=== PATIENT | male | born 1940 | race Caucasian/White ===

== ENCOUNTER → 2023-08-06 | Emergency (ER) | payer OTHER ==
[~2023-08-06] MED LIST: ASPIRIN 81 MG CHEWABLE TABLET ONE
--- OUTSIDE RECORDS SUMMARY | 2023-08-06 17:59 | XMS REPORT | Continuity of Care Document ---
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 Whole Name Role Phone GILBERTO ROY Attending Clinician Unavailable EDSON YODER Attending Clinician Unavail able Doctor Unassigned, [place] Attending Clinician U verónica Yoder MD, Edson Ceja Attending Clinician Jordi Soler MD Attending Clinician [phone] Payers Payer Name Policy Type Policy Number Effective Date Expirati on Date Source [id number] 2020 00:[facility]:00 [facility] MEDIC[facility] ERS [id number] 2016 00:00:00 2020 00:00:00 Problems Condition Name Condition Details Condition Category Status Onset Date Resolution Date Last Treatment Date Treating Clinician Comments Source Melanoma in situ of external ear, 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 Added automatic ally from request for surgery [id number] [facility] Allergies, Adverse Reactions, Alerts Allergy Name Allergy Type Status Severity Reaction(s) Onset Date Inactive Date Treating Clinician Comments Source NO KNOWN ALLERGIE S Drug Class Active [facility] Social History Social Habit Start Date Stop Date Quantity Comments Source Exposure to SARS-CoV-2 (event) Not sure [facility] Alcohol intake 2019-07-26 00:00:00 2019-07-26 00:00:00 Current non-drinker of alcohol (finding) [facility] Tobacco use and exposure 2019-07-26 00:00:00 2019-07-26 00:00:00 Never used [facility] Sex Assigned At 1940 00:00:00 1940 00:00:00 [facility] Smoking Status Start Date Stop Date Source Former smoker 2019-07-26 00:00:00 2019-07-26 00:00:00 [facility] Medications Ordered Medication Name Filled Medication Name Start Date Stop Date Current Medication? Ordering Clinician Indication Dosage Frequency Signature (SIG) Comments Components Source simvastatin 20 mg tablet 2018-07 17:02: 03 Yes 20mg Take 20 mg by mouth at bedtime. [facility] carvedilol 6.25 mg tablet 2018-07 17:02: 03 Yes 6.25mg Take 6.25 mg by mouth 2 (two) times daily with meals. [facility] aspirin 81 mg chewable tablet 2018-07 17:02: 03 Yes 81mg Take 81 mg by mouth daily. [facility] Amlodipine- Olmesartan (SAMIR) 10-40 mg Tab 2018-07 17:02: 03 Yes Take by mouth daily. [facility] simvastatin 20 mg tablet 2018-07 17:02: 03 Yes 20mg Take 20 mg by mouth at bedtime. [facility] carvedilol 6.25 mg tablet 2018-07 17:02: 03 Yes 6.25mg Take 6.25 mg by mouth 2 (two) times daily with meals. [facility] aspirin 81 mg chewable tablet 2018-07 17:02: 03 Yes 81mg Take 81 mg by mouth daily. [facility] Amlodipine- Olmesartan (SAMIR) 10-40 mg Tab 2018-07 17:02: 03 Yes Take by mouth daily. [facility] simvastatin 20 mg tablet 2018-07 17:02: 03 Yes 20mg Take 20 mg by mouth at bedtime. [facility] carvedilol 6.25 mg tablet 2018-07 17:02: 03 Yes 6.25mg Take 6.25 mg by mouth 2 (two) times daily with meals. [facility] aspirin 81 mg chewable tablet 2018-07 17:02: 03 Yes 81mg Take 81 mg by mouth daily. [facility] Amlodipine- Olmesartan (SAMIR) 10-40 mg Tab 2018-07 17:02: 03 Yes Take by mouth daily. [facility] simvastatin 20 mg tablet 2018-07 17:02: 03 Yes 20mg Take 20 mg by mouth at bedtime. [facility] carvedilol 6.25 mg tablet 2018-07 17:02: 03 Yes 6.25mg Take 6.25 mg by mouth 2 (two) times daily with meals. [facility] aspirin 81 mg chewable tablet 2018-07 17:02: 03 Yes 81mg Take 81 mg by mouth daily. [facility] Amlodipine- Olmesartan (SAMIR) 10-40 mg Tab 2018-07 17:02: 03 Yes Take by mouth daily. [facility] simvastatin 20 mg tablet 2018-07 17:02: 03 Yes 20mg Take 20 mg by mouth at bedtime. [facility] carvedilol 6.25 mg tablet 2018-07 17:02: 03 Yes 6.25mg Take 6.25 mg by mouth 2 (two) times daily with meals. [facility] aspirin 81 mg chewable tablet 2018-07 17:02: 03 Yes 81mg Take 81 mg by mouth daily. [facility] Amlodipine- Olmesartan (SAMIR) 10-40 mg Tab 2018-07 17:02: 03 Yes Take by mouth daily. [facility] simvastatin 20 mg tablet 2018-07 17:02: 03 Yes 20mg Take 20 mg by mouth at bedtime. [facility] carvedilol 6.25 mg tablet 2018-07 17:02: 03 Yes 6.25mg Take 6.25 mg by mouth 2 (two) times daily with meals. [facility] aspirin 81 mg chewable tablet 2018-07 17:02: 03 Yes 81mg Take 81 mg by mouth daily. [facility] Amlodipine- Olmesartan (SAMIR) 10-40 mg Tab 2018-07 17:02: 03 Yes Take by mouth daily. [facility] simvastatin 20 mg tablet 2018-07 17:02: 03 Yes 20mg Take 20 mg by mouth at bedtime. [facility] carvedilol 6.25 mg tablet 2018-07 17:02: 03 Yes 6.25mg Take 6.25 mg by mouth 2 (two) times daily with meals. [facility] aspirin 81 mg chewable tablet 2018-07 17:02: 03 Yes 81mg Take 81 mg by mouth daily. [facility] Amlodipine- Olmesartan (SAMIR) 10-40 mg Tab 2018-07 17:02: 03 Yes Take by mouth daily. [facility] methylPREDN ISolone (MEDROL, JOE,) 4 mg tablets 2018-07 00:00: 00 Yes [id number] Take by mouth SEE-INSTRU CTIONS. follow package directions [facility] methylPREDN ISolone (MEDROL, JOE,) 4 mg tablets 2018-07 00:00: 00 Yes [id number] Take by mouth SEE-INSTRU CTIONS. follow package directions [facility] methylPREDN ISolone (MEDROL, JOE,) 4 mg tablets 2018-07 00:00: 00 Yes [id number] Take by mouth SEE-INSTRU CTIONS. follow package directions [facility] methylPREDN ISolone (MEDROL, JOE,) 4 mg tablets 2018-07 00:00: 00 Yes [id number] Take by mouth SEE-INSTRU CTIONS. follow package directions [facility] methylPREDN ISolone (MEDROL, JOE,) 4 mg tablets 2018-07 00:00: 00 Yes [id number] Take by mouth SEE-INSTRU CTIONS. follow package directions [facility] methylPREDN ISolone (MEDROL, JOE,) 4 mg tablets 2018-07 00:00: 00 Yes [id number] Take by mouth SEE-INSTRU CTIONS. follow package directions [facility] methylPREDN ISolone (MEDROL, JOE,) 4 mg tablets 2018-07 00:00: 00 Yes [id number] Take by mouth SEE-INSTRU CTIONS. follow package directions [facility]/gram ointment 2018-07 00:00: 00 Yes [id number] Apply to affected area(s) 3 (three) times daily. [facility] traMADol 50 mg tablet 2018-07 00:00: 00 Yes [id number] 50mg Take 1 tablet by mouth every 6 (six) hours as needed for Pain (scale 7-10). [facility] bacitracin 500 unit/gram ointment 2018-07 00:00: 00 Yes [id number] Apply to affected area(s) 3 (three) times daily. [facility] traMADol 50 mg tablet 2018-07 00:00: 00 Yes [id number] 50mg Take 1 tablet by mouth every 6 (six) hours as needed for Pain (scale 7-10). [facility] bacitracin 500 unit/gram ointment 2018-07 00:00: 00 Yes [id number] Apply to affected area(s) 3 (three) times daily. [facility] traMADol 50 mg tablet 2018-07 00:00: 00 Yes [id number] 50mg Take 1 tablet by mouth every 6 (six) hours as needed for Pain (scale 7-10). [facility] bacitracin 500 unit/gram ointment 2018-07 00:00: 00 Yes [id number] Apply to affected area(s) 3 (three) times daily. [facility] traMADol 50 mg tablet 2018-07 00:00: 00 Yes [id number] 50mg Take 1 tablet by mouth every 6 (six) hours as needed for Pain (scale 7-10). [facility] bacitracin 500 unit/gram ointment 2018-07 00:00: 00 Yes [id number] Apply to affected area(s) 3 (three) times daily. [facility] traMADol [facility] mg tablet 2018-07 00:00: 00 Yes [id number] 50mg Take 1 tablet by mouth every 6 (six) hours as needed for Pain (scale 7-10). [facility] bacitracin 500 unit/gram ointment 2018-07 00:00: 00 Yes [id number] Apply to affected area(s) 3 (three) times daily. [facility] traMADol 50 mg tablet 2018-07 00:00: 00 Yes [id number] 50mg Take 1 tablet by mouth every 6 (six) hours as needed for Pain (scale 7-10). [facility] bacitracin 500 unit/gram ointment 2018-07 00:00: 00 Yes [id number] Apply to affected area(s) 3 (three) times daily. [facility] traMADol 50 mg tablet 2018-07 00:00: 00 Yes [id number] 50mg Take 1 tablet by mouth every 6 (six) hours as needed for Pain (scale 7-10). [facility] Vital Signs Vital Name Observation Time Observation Value Comments S ource Systolic blood pressure 2020-01-21 13:18:00 133 mm[Hg] [facility] Diastolic blood pressure 2020-01-21 13:18:00 75 mm[Hg] [facility] Heart rate 2020-01-21 13:18:00 80 /min [facility] Body temperature 2020-01-21 13:17:00 36.83 Maria C [facility] Respiratory rate 2020-01-21 13:17:00 20 /min [facility] Body height 2020-01-21 13:17:00 167.6 cm [facility] Body weight 2020-01-21 13:17:00 93.895 kg [facility] BMI 2020-01-21 13:17:00 33.41 kg/m2 [facility] Oxygen saturation in Arterial blood by Pulse oximetry 2020-01-21 13:17:00 98 /min [facility] Procedures Procedure Date / Time Performed Performing Clinicia n Source ASSIGNMENT OF BENEFITS 2020-06-24 13:59:56 Docto r Unassigned, [place] [facility] EXTERNAL PROVIDER RECORDS 2020-04-14 05:01:00 Doctor Unassigned, [place] [facility] DISABILITY/FMLA 2019-09-17 06:01:00 Doctor Unass igned, [place] [facility] DISABILITY/FMLA 2019-09-06 06:01:00 Doctor Unass igned, [place] [facility] Encounters Start Date/Time End Date/Time Encounter Type Admission Type Attending [facility] Care Department Encounter ID Source 2020-09-29 09:10:00 2020-09-29 09:10:00 Outpatient GILBERTO CASTELLANOS [facility] [id number] [facility] 2020-09-08 09:10:00 2020-09-08 09:10:00 Outpatient GILBERTO CASTELLANOS [facility] [id number] [facility] 2020-06-24 08:15:00 2020-06-24 08:15:00 Outpatient DESON SANTA [facility] [id number] [facility] 2020-06-24 00:00:00 2020-06-24 00:00:00 Orders Only Doctor Unassigned, [place] [facility] 1..840.114 [id number] [facility] 2020-04-14 00:00:00 2020-04-14 00:00:00 Orders Only Doctor Unassigned, [place] [facility] 1..840.114 [id number] [facility] 2020-01-21 07:54:31 2020-01-21 08:17:01 Office Visit Edson Yoder [facility] 1..840.114 [id number] [id number] [facility] 2020-01-21 08:00:00 2020-01-21 08:00:00 Outpatient EDSON SANTA [facility] [id number] [facility] 2019-09-17 00:00:00 2019-09-17 00:00:00 Orders Only Doctor Unassigned, [place] [facility] [id number] [facility] 2019-09-11 00:00:00 2019-09-11 00:00:00 Telephone Ryder [facility] [id number] [facility] 2019-09-06 00:00:00 2019-09-06 00:00:00 Orders Only Doctor Unassigned, [place] [facility] [id number] [facility]
--- NOTE | 2023-08-06 18:50 | RAD REPORT ---
EXAM DESCRIPTION: Jannie Single View08/06/2023 6:45 pm CLINICAL HISTORY: CHEST PAIN COMPARISON: Chest Pa And Lat (2 Views) dated 07/07/2017; CHEST PA AND LAT 2 VIEW dated 09/23/2014 TECHNIQUE: Portable AP view of the chest. FINDINGS: The lungs are clear. No pneumothorax or effusion. The cardiomediastinal contours are unre markable. IMPRESSION: No acute cardiopulmonary process.
[2023-08-06 19:00] LABS: Absolute Lymphocytes (CBC) 0.8 K/uL (0.7-4.9); Hematocrit 44.2 % (39.6-49.0); Lymphocytes % 22.3 % (15.3-44.8); MCV 93.4 fL (80-100); MPV 8.8 fL (7.6-11.3); Platelets 152 thou/uL (152-406); Protime INR 1.2; RBC Red Blood Cell Count 4.74 M/uL (4.33-5.43)
[2023-08-06 19:12] LABS: Albumin 3.5 g/dL (3.4-5.0); Bilirubin Direct 0.2 mg/dL (0-0.2); Bilirubin Indirect, Calculated 0.4 mg/dL (0.2-0.8); Bilirubin Total 0.6 mg/dL (0.2-1.0); Magnesium 2.2 mg/dL (1.6-2.4); Potassium 3.4 mEq/L (3.5-5.1); Protein, Total 6.9 g/dL (6.4-8.2); Troponin High Sensitivity 6.5 pg/mL (<58.9)
--- NOTE | 2023-08-06 21:31 | ER ---
Nurse's Notes [facility] Name: Antwon Ball Sr Age: 83 yrs Sex: Male : 1940 Arrival Date: 08/06/2023 Time: 17:56 Bed 20 Private MD: Diagnosis: Chest pain, unspecified Presentation: 08/06 18:00 Chief complaint: Patient states: he felt like he needed to burp but couldn't, he nj1 finally did and felt better after. No chest pain at this time. 18:00 Coronavirus screen: Vaccine status: Patient reports receiving the 2nd dose of the covid nj1 vaccine. Ebola Screen: Patient denies travel to an Ebola-affected area in the 21 days before illness onset. Initial Sepsis Screen: Does the patient meet any 2 criteria? HR > 90 bpm. No. Patient's initial sepsis screen is negative. Does the patient have a suspected source of infection? No. Patient's initial sepsis screen is negative. Risk Assessment: Do you want to hurt yourself or someone else? Patient reports no desire to harm self or others. Onset of symptoms was August 06, 2023. 18:00 Method Of Arrival: Ambulatory [facility] 18:00 Acuity: ELIZABETH 3 nj1 Historical: - Allergies: 18:10 No Known Allergies; nj1 - PMHx: 18:10 Hypertension; Hypercholesterolemia; nj1 - PSHx: 18:10 None; nj1 - Immunization history:: Client reports receiving the 2nd dose of the Covid vaccine. - Social history:: Smoking status: Patient denies any tobacco usage or history of. Screenin:46 [facility] ED Fall Risk Assessment (Adult) History of falling in the last 3 months, tl4 including since admission No falls in past 3 months (0 pts) Confusion or Disorientation No (0 pts) Intoxicated or Sedated No (0 pts) Impaired Gait No (0 pts) Mobility Assist Device Used No (0 pt) Altered Elimination No (0 pt) Score/Fall Risk Level 0 - 2 = Low Risk Oriented to surroundings, Maintained a safe environment, Educated pt \T\ family on fall prevention, incl call for assistance when getting out of bed, Assessed \T\ reinforced patient's understanding of fall precautions, Provided non-skid footwear. Abuse screen: Denies threats or abuse. Denies injuries from another. Nutritional screening: No deficits noted. Tuberculosis screening: No symptoms or risk factors identified. Assessment: 18:42 General: Appears in no apparent distress. Behavior is calm, cooperative. Pain: Denies tl4 pain. Pain does not radiate. Pain began suddenly, 2 hours ago. Neuro: No deficits noted. Cardiovascular: Reports chest pain, now resolved Capillary refill < 3 seconds JVD is absent Patient's skin is warm and dry. Rhythm is sinus rhythm. Respiratory: Breath sounds are clear bilaterally. Denies shortness of breath. GI: No deficits noted. No signs and/or symptoms were reported involving the gastrointestinal system. : No deficits noted. No signs and/or symptoms were reported regarding the genitourinary system. EENT: No deficits noted. No signs and/or symptoms were reported regarding the EENT system. 19:00 General: Appears in no apparent distress. comfortable, well groomed, well developed, pf1 Behavior is calm, cooperative, appropriate for age, quiet. 19:00 Pain: Denies pain. Neuro: No deficits noted. Level of Consciousness is awake, alert, pf1 obeys commands, Oriented to person, place, time, situation. Cardiovascular: Capillary refill < 3 seconds Patient's skin is warm and dry. Respiratory: No deficits noted. Airway is patent Respiratory effort is even, unlabored, Respiratory pattern is regular, symmetrical, Breath sounds are clear bilaterally. GI: No deficits noted. No signs and/or symptoms were reported involving the gastrointestinal system. : No deficits noted. No signs and/or symptoms were reported regarding the genitourinary system. EENT: No deficits noted. No signs and/or symptoms were reported regarding the EENT system. 20:00 Reassessment: Patient appears in no apparent distress at this time. Patient and/or pf1 family updated on plan of care and expected duration. Pain level reassessed. Patient is alert, oriented x 3, equal unlabored respirations, skin warm/dry/pink. Patient states feeling better. Patient states symptoms have improved. 21:00 Reassessment: Patient appears in no apparent distress at this time. Patient and/or pf1 family updated on plan of care and expected duration. Pain level reassessed. Patient is alert, oriented x 3, equal unlabored respirations, skin warm/dry/pink. Patient denies pain at this time. Patient states feeling better. Patient states symptoms have improved. Vital Signs: 18:00 BP 141 / 87; Pulse 100; Resp 20; Temp 97.9(O); Pulse Ox 97% on R/A; Weight 92.99 kg; nj1 Height 5 ft. 10 in. ; Pain 0/10; 18:25 BP 132 / 82; Pulse 76; Resp 19; Pulse Ox 96% on R/A; Pain 0/10; tl4 18:45 BP 129 / 55; Pulse 66; Resp 18; Pulse Ox 100% on R/A; Pain 0/10; tl4 19:00 BP 143 / 78; Pulse 81; Resp 16; Temp 98.1; Pulse Ox 95% on R/A; Pain 0/10; pf1 20:00 BP 134 / 79; Pulse 71; Resp 15; Pulse Ox 94% on R/A; Pain 0/10; pf1 21:00 BP 137 / 87; Pulse 70; Resp 14; Pulse Ox 97% on R/A; Pain 0/10; pf1 18:00 Body Mass Index 29.41 (92.99 kg, 177.8 cm) nj1 18:00 Pain Scale: Adult nj1 18:25 Pain Scale: Adult tl4 18:45 Pain Scale: Adult tl4 19:00 Pain Scale: Adult pf1 20:00 Pain Scale: Adult pf1 21:00 Pain Scale: Adult pf1 Vitals: 18:45 Cardiac Rhythm Assessment Regular Sinus rhythm. tl4 Amity Coma Score: 18:45 Eye Response: spontaneous(4). Motor Response: obeys commands(6). Verbal Response: tl4 oriented(5). Total: 15. ED Course: 17:58 Patient arrived in ED. im 17:59 Angelia Menezes FNP-C is PHCP. snw 17:59 Yordan Funes MD is Attending Physician. snw 18:04 Adriano Thornton is Primary Nurse. tl4 18:10 Triage completed. nj1 18:18 Arm band placed on right wrist. nj1 18:42 Lipase Sent. tl4 18:42 Basic Metabolic Panel Sent. tl4 18:42 CBC with Diff Sent. tl4 18:42 LFT's Sent. tl4 18:42 Magnesium Sent. tl4 18:42 Inserted saline lock: 20 gauge in right antecubital area, using aseptic technique. tl4 Blood collected. 18:46 XRAY Chest (1 view) In Process Unspecified. EDMS 18:46 Patient has correct armband on for positive identification. Placed in gown. Bed in low tl4 position. Call light in reach. Side rails up X2. Adult w/ patient. Provided Education on: ED process. Client placed on continuous cardiac and pulse oximetry monitoring. NIBP monitoring applied. satellite project site monitor on. Door closed. Noise minimized. Lights dimmed. Warm blanket given. 18:47 No provider procedures requiring assistance completed. Patient maintains SpO2 tl4 saturation greater than 95% on room air. 21:08 Troponin High Sensitivity Sent. pf1 21:46 IV discontinued, intact, bleeding controlled, No redness/swelling at site. Pressure pf1 dressing applied. 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 (pt took 162mg CASSANDRA ARCHITECT): aspirinchewable tablet 324 mg PO once; 81 mg tablets x 4 snw 18:17 Drug: Aspirin PO Chewable Tablet 162 mg PO once Route: PO; tl4 19:15 Follow up: Response: No adverse reaction; Marked relief of symptoms; Pain is decreased pf1 Medication: 18:46 VIS not applicable for this client. tl4 Outcome: 21:31 Discharge ordered by MD. snw 21:46 Discharged to home ambulatory, with family, pf1 21:46 Condition: improved 21:46 Discharge instructions given to patient, family, Instructed on discharge instructions, follow up and referral plans. Demonstrated understanding of instructions, follow-up care, 21:46 Patient left the ED. pf1 Signatures: Dispatcher [employer] EDCT Angelia Menezes, ELECT[employer]IC B[employer]IN WAVE EQUIPMENT MECHANIC-C ELECTRIC BRAIN WAVE EQUIPMENT MECHANIC-Csnw Tasneem Feliz RN RN pf1 Christa Gomez RN RN nj1 Nicki Fernandez Toni tl4 Corrections: (The following items were deleted from the chart) 19:02 18:45 BP 132 / 82; Pulse 76bpm; Resp 19bpm; Pulse Ox 96% RA; Pain 0/10, Adult; tl4 tl4
--- NOTE | 2023-08-06 21:32 | EDPHYS ---
Physician Documentation [facility] Name: Antwon Ball Sr Age: 83 yrs Sex: Male : 1940 Arrival Date: 08/06/2023 Time: 17:56 Bed 20 Private MD: ED Physician Yordan Funes HPI: 08/06 18:07 This 83 yrs old Male presents to ER via Unassigned with complaints of Chest Pain. snw 18:07 Onset: The symptoms/episode began/occurred acutely, and improved just prior to arrival. snw Associated signs and symptoms: Pertinent positives: felt like he needed to burp. The patient has not experienced similar symptoms in the past. It is unknown whether or not the patient has recently seen a physician. pain resolved at this time. Historical: - Allergies: 18:10 No Known Allergies; nj1 - PMHx: 18:10 Hypertension; Hypercholesterolemia; nj1 - PSHx: 18:10 None; nj1 - Immunization history:: Client reports receiving the 2nd dose of the Covid vaccine. - Social history:: Smoking status: Patient denies any tobacco usage or history of. ROS: 18:06 Constitutional: Negative for fever, chills, and weight loss, Eyes: Negative for injury, snw pain, redness, and discharge, ENT: Negative for injury, pain, and discharge, Neck: Negative for injury, pain, and swelling, Cardiovascular: Negative for chest pain, palpitations, and edema, Respiratory: Negative for shortness of breath, cough, wheezing, and pleuritic chest pain, Back: Negative for injury and pain, : Negative for injury, bleeding, discharge, and swelling, MS/Extremity: Negative for injury and deformity, Skin: Negative for injury, rash, and discoloration, Neuro: Negative for headache, weakness, numbness, tingling, and seizure, Psych: Negative for depression, anxiety, suicide ideation, homicidal ideation, and hallucinations, 18:06 Abdomen/GI: Positive for pt felt pressure like he needed to burp. radiated up to chest. Burped and pain resolved., Exam: 18:06 Constitutional: This is a well developed, well nourished patient who is awake, alert, snw and in no acute distress. Head/Face: Normocephalic, atraumatic. Eyes: Pupils equal round and reactive to light, extra-ocular motions intact. Lids and lashes normal. Conjunctiva and sclera are non-icteric and not injected. Cornea within normal limits. Periorbital areas with no swelling, redness, or edema. ENT: Nares patent. No nasal discharge, no septal abnormalities noted. Tympanic membranes are normal and external auditory canals are clear. Oropharynx with no redness, swelling, or masses, exudates, or evidence of obstruction, uvula midline. Mucous membranes moist. Neck: Trachea midline, no thyromegaly or masses palpated, and no cervical lymphadenopathy. Supple, full range of motion without nuchal rigidity, or vertebral point tenderness. No Meningismus. Chest/axilla: Normal chest wall appearance and motion. Nontender with no deformity. No lesions are appreciated. Cardiovascular: Regular rate and rhythm with a normal S1 and S2. No gallops, murmurs, or rubs. Normal PMI, no JVD. No pulse deficits. Respiratory: Lungs have equal breath sounds bilaterally, clear to auscultation and percussion. No rales, rhonchi or wheezes noted. No increased work of breathing, no retractions or nasal flaring. Abdomen/GI: Soft, non-tender, with normal bowel sounds. No distension or tympany. No guarding or rebound. No evidence of tenderness throughout. Back: No spinal tenderness. No costovertebral tenderness. Full range of motion. Skin: Warm, dry with normal turgor. Normal color with no rashes, no lesions, and no evidence of cellulitis. MS/ Extremity: Pulses equal, no cyanosis. Neurovascular intact. Full, normal range of motion. Neuro: Awake and alert, GCS 15, oriented to person, place, time, and situation. Cranial nerves II-XII grossly intact. Motor strength 5/5 in all extremities. Sensory grossly intact. Cerebellar exam normal. Normal gait. Psych: Awake, alert, with orientation to person, place and time. Behavior, mood, and affect are within normal limits. Vital Signs: 18:00 BP 141 / 87; Pulse 100; Resp 20; Temp 97.9(O); Pulse Ox 97% on R/A; Weight 92.99 kg; nj1 Height 5 ft. 10 in. ; Pain 0/10; 18:25 BP 132 / 82; Pulse 76; Resp 19; Pulse Ox 96% on R/A; Pain 0/10; tl4 18:45 BP 129 / 55; Pulse 66; Resp 18; Pulse Ox 100% on R/A; Pain 0/10; tl4 19:00 BP 143 / 78; Pulse 81; Resp 16; Temp 98.1; Pulse Ox 95% on R/A; Pain 0/10; pf1 20:00 BP 134 / 79; Pulse 71; Resp 15; Pulse Ox 94% on R/A; Pain 0/10; pf1 21:00 BP 137 / 87; Pulse 70; Resp 14; Pulse Ox 97% on R/A; Pain 0/10; pf1 18:00 Body Mass Index 29.41 (92.99 kg, 177.8 cm) nj1 18:00 Pain Scale: Adult nj1 18:25 Pain Scale: Adult tl4 18:45 Pain Scale: Adult tl4 19:00 Pain Scale: Adult pf1 20:00 Pain Scale: Adult pf1 21:00 Pain Scale: Adult pf1 Wilfrid Coma Score: 18:45 Eye Response: spontaneous(4). Motor Response: obeys commands(6). Verbal Response: tl4 oriented(5). Total: 15. MDM: 17:59 Patient medically screened. snw 19:27 Differential diagnosis: viral Infection, bacterial infection, angina: stable, unstable, snw PA. Data reviewed: vital signs, nurses notes, lab test result(s), EKG, radiologic studies. Historians other than the Patient: Spouse/Significant Other: . Counseling: I had a detailed discussion with the patient and/or guardian regarding the historical points, exam findings, and any diagnostic results supporting the discharge/admit diagnosis, the presence of at least one elevated blood pressure reading (>120/80) during this emergency department visit, lab results, radiology results, will repeat EKG and troponin at 2100, pt remains chest pain free. Awaiting: labs results. Special discussion: Based on the patient's history, exam, and Dx evaluation, there is no indication for emergent intervention or inpatient Tx. It is understood by the patient/guardian that if the Sx's persist or worsen they need to return immediately for re-evaluation. Based on the history and exam findings, there is no indication for further emergent testing or inpatient evaluation. I discussed with the patient/guardian the need to see the willower for further evaluation of the symptoms. I discussed with the patient/guardian the need to see the primary care provider for further evaluation of the symptoms. ED course: will repeat EKG and Trop at 2100, pt remains pain free. 20:30 Differential diagnosis: abnormal EKG, acute myocardial infarction, acute pericarditis, snw anxiety, coronary artery disease cholecystitis, esophagitis, gastritis, pancreatitis, stable angina, unstable angina. The patient was given aspirin in the Emergency Department. LUIS Risk Score: 1 - patient's age is greater or equal to 65 years, 1 - Three or more CAD risk factors, 1- Known CAD, 1 - Recent [<24hrs] Severe Angina, TOTAL SCORE = 4. I considered the following discharge prescriptions or medication management in the emergency department pt had two baby asa prior to arrival, two more given on arrival. Denies any chest pain. Care significantly affected by the following chronic conditions: Hypertension, HLD. 21:14 ED course: remains pain free, EKG unchanged, awaiting second troponin. [facility] 08/06 18:00 Order name: Basic Metabolic Panel; Complete Time: 19:13 w 08/06 18:00 Order name: CBC with Diff; Complete Time: 19:06 w 08/06 18:00 Order name: LFT's; Complete Time: 19:13 [facility] 08/06 18:00 Order name: Magnesium; Complete Time: 19:13 snw 08/06 18:00 Order name: NT PRO-BNP; Complete Time: 19:13 w 08/06 18:00 Order name: PT-INR; Complete Time: 19:06 [facility] 08/06 18:00 Order name: Troponin HS; Complete Time: 19:13 w 08/06 18:06 Order name: Lipase; Complete Time: 19:06 [facility] 08/06 20:59 Order name: Troponin High Sensitivity; Complete Time: 21:30 pf1 08/06 18:00 Order name: XRAY Chest (1 view); Complete Time: 18:51 w 08/06 18:00 Order name: EKG; Complete Time: 18:01 w 08/06 18:00 Order name: Cardiac monitoring; Complete Time: 18:17 snw 08/06 18:00 Order name: EKG - Nurse/Tech; Complete Time: 18:17 w 08/06 18:00 Order name: IV Saline Lock; Complete Time: 18:42 snw 08/06 18:00 Order name: Labs collected and sent; Complete Time: 18:42 snw 08/06 18:00 Order name: O2 Per Protocol; Complete Time: 18:17 snw 08/06 18:00 Order name: O2 Sat Monitoring; Complete Time: 18:17 snw 08/06 20:59 Order name: EKG - Nurse/Tech; Complete Time: 21:08 pf1 EC:18 Rate is 92 beats/min. Rhythm is regular. CA interval is normal. QRS interval is snw prolonged. Clinical impression: NSR w/ Non-specific ST/T Changes and right BBB, isolated ST elevation in lead III. 21:13 Rhythm is regular. QRS [place] is Normal. QRS interval is prolonged. Clinical impression: snw NSR w/ Non-specific ST/T Changes and unchanged from previous . 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): aspirinchewable tablet 324 mg PO once; 81 mg tablets x 4 snw 18:17 Drug: Aspirin PO Chewable Tablet 162 mg PO once Route: PO; tl4 19:15 Follow up: Response: No adverse reaction; Marked relief of symptoms; Pain is decreased pf1 Disposition Summary: 08/06/23 21:31 Discharge Ordered Notes: Location: Home snw Condition: Stable snw Diagnosis - Chest pain, unspecified snw Followup: snw - With: Private Physician - When: 1 - 2 days - Reason: Recheck today's complaints, Continuance of care, Re-evaluation by your physician Followup: snw - With: Emergency Department - When: As needed - Reason: Worsening of condition Discharge Instructions: - Discharge Summary Sheet snw - Nonspecific Chest Pain, Adult snw - Aspirin and Your Heart snw - Form - Blood Pressure Record Sheet snw Forms: - Medication Reconciliation Form snw - Thank You Letter snw - Antibiotic Education snw - Prescription Opioid Use snw - Patient Portal Instructions snw - Leadership Thank You Letter snw Addendum: 08/08/2023 10:54 I was immediately available for consultation during this patient's visit. I did not e c2 personally see the patient or discuss the patient with the ROYA. . Signatures: Dispatcher [employer] Angelia Farah FNP-C RESTORATIVE COORDINATOR-Csnw Tasneem Feliz RN RN pf1 Christa Gomez RN RN nj1 Yordan Funes MD MD ec2 Adriano Thornton 4 Corrections: (The following items were deleted from the chart) 08/06 18:06 18:00 Aspirin PO Chewable Tablet 324 mg PO once; 81 mg tablets x 4 ordered. snw snw
[2023-08-06 23:50] VITALS: TEMP 98.1
[2023-08-07 00:10] VITALS: BP 137/87; O2SAT 97
--- NOTE | 2023-08-08 16:56 | EKG ---
Test Date: 2023-08-06 Test Time: 21:06:17 Brickmason Apprentice: ALP MEASUREMENT RESULTS: Intervals: Rate: 73 DC: 174 QRSD: 140 QT: 438 QTc: 482 [place]: P: 50 DC: 174 QRS: 32 T: 47 INTERPRETIVE STATEMENTS: Normal sinus rhythm Right bundle branch block Abnormal ECG Compared to ECG 08/06/2023 18:13:58 No significant changes Electronically Signed On 08-08-23 16:51:59 ASSOCIATE TECHNICIAN by River Jc
--- NOTE | 2023-08-08 16:56 | EKG ---
Test Date: 2023-08-06 Test Time: 18:13:58 Administration Dean: TL MEASUREMENT RESULTS: Intervals: Rate: 92 MS: 164 QRSD: 138 QT: 404 QTc: 499 [place]: P: 52 MS: 164 QRS: 72 T: 52 INTERPRETIVE STATEMENTS: Normal sinus rhythm Right bundle branch block Abnormal ECG Compared to ECG 03/16/2007 14:55:55 Right bundle-branch block now present Sinus bradycardia no longer present Electronically Signed On 08-08-23 16:52:13 CONCRETE SMOOTHER by River Jc
== END ==
LOC: ER 17:56
DX: R07.89 Other chest pain (principal)
CPT/HCPCS: 36415; 71045; 80048; 80076; 83690; 83735; 83880; 84484; 85025; 85610; 93005; 99285